=== PATIENT | male | born 1960 | race Caucasian/White ===

== ENCOUNTER 2017-12-06 17:55 | Emergency (ER) | payer BC ==
[~2017-12-06] VITALS: Ht 180.3 cm; Wt 84.0 kg
[2017-12-06 18:04] VITALS: BP 131/71; PULSE 75; RESP 16; TEMP 99.3; O2SAT 97
[2017-12-06] MEDS ORDERED: AZIT250T3 PO (18:30)
[2017-12-06] MEDS ORDERED: LISI10TA3 PO (18:30)
[2017-12-06] MEDS ORDERED: PRED20 PO (18:30)
[2017-12-06] MEDS ORDERED: AMOXICILLIN/CLAVULANATE K 875 MG TAB PO ONE (18:30)
[2017-12-06] MEDS ORDERED: ROSU10 PO (18:30)
[2017-12-06] MEDS ORDERED: AUGM875T3 PO (18:42)
--- NOTE | 2017-12-06 18:43 | PD ---
HPI Chief Complaint: Anxiety Time Seen by Provider: 18:15 Travel History International Travel<30 days: No Contact w/Intl Traveler<30days: No Traveled to known affect area: No History of Present Illness HPI Patient is a 56 year old male who presents to the ER with complaints of possible anxiety reaction vs drug reaction. Patient reports that he has been taking prednisone as well as a z-pack for the past 3 days for treatment of sinusitis. Reports that he didn't take his prednisone today but took his azithromax at 5pm today. Reports that after he took his medication, his arms felt flush and he began to have palpitations. Patient reports his symptoms only lasted for a about 15 minutes and resolved on its own. Patient denies any airway issues, denies any troubles with breathing, denies any rash, denies any nausea or vomiting. Patient denies any chest pain or shortness of breath. Patient was concerned that he was allergic to the azithromycin. Patient reports that he has no known allergies to drugs, he has never had this reaction in the past. Patient currently asymptomatic. PFSH Past Medical History Hx Anticoagulant Therapy: Yes (asa 81mg) Cardiovascular Problems: Yes (htn on meds) Past Surgical History Surgical History: No Previous Surgery Social History Alcohol Use: No Tobacco Use: Yes Substance Use: No Allergies-Medications (Allergen,Severity, Reaction): Coded Allergies: No Known Allergies (Unverified , 12/06/17) Review of Systems General / Constitutional: No: Fever, Chills Eyes: No: Visual changes HENT: Positive: Other (increased sinus pressure), No: Headaches Cardiovascular: Positive: Palpitations, No: Chest Pain or Discomfort, Irregular Rhythm, Tachycardia, Diaphoresis Respiratory: No: Shortness of Breath Gastrointestinal: No: Abdominal Pain Genitourinary: No: Dysuria Musculoskeletal: No: Pain Skin: No Rash Neurologic: No: Weakness Psychiatric: No: Depression Endocrine: No: Polydipsia Hematologic/Lymphatic: No: Easy Bruising Physical Exam Narrative GENERAL: NAD SKIN: Focused skin assessment warm/dry. HEAD: Atraumatic. Normocephalic. Patient with increased frontal sinus pressure EYES: Pupils equal and round. No scleral icterus. No injection or drainage. ENT: No nasal bleeding or discharge. Mucous membranes pink and moist. NECK: Trachea midline. No JVD. CARDIOVASCULAR: Regular rate and rhythm. No murmur appreciated. RESPIRATORY: No accessory muscle use. Clear to auscultation. Breath sounds equal bilaterally. GASTROINTESTINAL: Abdomen soft, non-tender, nondistended. Hepatic and splenic margins not palpable. MUSCULOSKELETAL: No obvious deformities. No clubbing. No cyanosis. No edema. NEUROLOGICAL: Awake and alert. No obvious cranial nerve deficits. Motor grossly within normal limits. Normal speech. PSYCHIATRIC: Anxious mood and affect; insight and judgment normal. Data Data Last Documented VS Vital Signs Date Time Temp Pulse Resp B/P (MAP) Pulse Ox O2 Delivery O2 Flow Rate FiO2 12/06/17 18:04 99.3 75 16 131/71 (91) 97 Orders Orders Amoxicil-Clavulanate (Augmentin) (12/06/17 18:30) [facility] Medical Decision Making Medical Screen Exam Complete: Yes Emergency Medical Condition: Yes Medical Record Reviewed: Yes Interpretation(s) Vital Signs Date Time Temp Pulse Resp B/P (MAP) Pulse Ox O2 Delivery O2 Flow Rate FiO2 12/06/17 18:04 99.3 75 16 131/71 (91) 97 Differential Diagnosis Medication reaction, sinusitis, anxiety reaction Narrative Course Patient is a 56-year-old male who is currently taking azithromycin as well as prednisone for his sinus infection. Patient reports that after taking a dose of azithromycin today, developed flushing to his upper extremities, palpitations and a throbbing sensation to his head. Patient reports the symptoms lasted for 15 minutes and has since resolved. Patient with no airway compromise, no rash, no chest pain or shortness of breath at this time. Patient has complete resolution of symptoms while in the ER. Discussed that his symptoms could be secondary to taking his prednisone versus azithromycin. Patient is convinced that his symptoms are due to taking azithromycin. Azithromycin could cause headache. Discussed with patient plan to change his antibiotics to Augmentin as this is a better antibiotic for treatment of sinusitis. He does have increased pressure to his sinuses during my examination. Patient is asymptomatic with no complaints at this time, will discharge home with a prescription for Augmentin. He will stop taking azithromycin as well as prednisone. Diagnosis Primary Impression: Sinusitis Qualified Codes: J01.10 - Acute frontal sinusitis, unspecified Patient Instructions: General Instructions Additional Instructions: Please stop taking Z-Alexander as well as prednisone Please follow-up with your primary care doctor Return to the emergency room as needed Med/Other Pt SpecificInfo: Prescription(s) given Scripts Amoxicillin-Clavulanate (Augmentin) 875-125 Mg Tab 1 TAB PO BID for Infection for 7 Days, #14 TAB 0 Refills Prov: Talisha Trotter DO 12/06/17 Disposition: 01 DISCHARGE HOME Condition: Stable Talisha Trotter DO Dec 06, 2017 18:43
[2017-12-06 19:02] VITALS: BP 103/60
== END 2017-12-06 19:09 | disposition home or self-care (01) ==
LOC: PHED 17:55
DX: J01.10 Acute frontal sinusitis, unspecified (principal); F41.9 Anxiety disorder, unspecified; I10 Essential (primary) hypertension; Z72.0 Tobacco use
CPT/HCPCS: 99283